=== PATIENT | female | born 1980 | race Caucasian/White ===

== ENCOUNTER 2019-08-26 13:52 | Emergency (ER) | payer OTHER, SELFPAY ==
--- NOTE | ~2019-08-26 | CT_ITS ---
EXAMINATION: CT lumbar spine wo [facility] EXAM DATE: 08/26/2019 15:45 INDICATION: No known recent injury provided at this time. Pain of the lower back. TECHNIQUE: Spiral CT of the lumbar spine was performed without contrast. Axial, coronal and sagittal images were reviewed. The dose-length product (DLP) for this examination was 492.47 mGy-cm. The e xposure was tailored according to patient size (auto mA exposure control), and iterative reconstructi on (ASIR) was used as additional dose reduction technique. There is no prior study for comparison. FINDINGS: There are no bony erosions identified. The vertebral bodies are aligned in the AP dimension . Vertebral body and disc heights are well-maintained. There are no acute fractures identified. There is no spondylolysis. Paraspinal soft tissue is unremarkable. Kidneys were imaged, no hydronephrosis or nephrolithiasis. Level by level evaluation: T12-L1: Disc does not extend beyond the endplate margin. Facet arthropathy: None. Neural foraminal stenosis: No stenosis. Central canal stenosis: No stenosis. L1-L2: Disc does not extend beyond the endplate margin. Facet arthropathy: None. Neural foraminal stenosis: No stenosis. Central canal stenosis: No stenosis. L2-L3: There is a mild diffuse disc bulge. Facet arthropathy: None. Neural foraminal stenosis: No stenosis. Central canal stenosis: No stenosis. L3-L4: There is a mild diffuse disc bulge. Facet arthropathy: Mild. Neural foraminal stenosis: Mild bilateral. Central canal stenosis: Mild. L4-L5: There is a mild diffuse disc bulge. Facet arthropathy: Mild to moderate. Neural foraminal stenosis: Mild to moderate left, mild right. Central canal stenosis: Mild. L5-S1: There is a mild diffuse disc bulge, superimposed small left central extrusion Facet arthropathy: Mild to moderate. Neural foraminal stenosis: Mild to moderate left, mild right. Central canal stenosis: Mild. IMPRESSION: 1. Mild lumbar spondylosis. 2. No acute findings. Reviewed, dictated and finalized at location B.
[2019-08-26 13:54] VITALS: BP 128/66; PULSE 65; RESP 18; TEMP 36.7; O2SAT 100
[2019-08-26] MEDS: ACETAMINOPHEN 500 MG TABLET 1000 MG PO (14:51)
--- NOTE | 2019-08-26 15:12 | ED.BACK ---
HPI - Back Pain/Injury General Chief Complaint: Back Pain/Injury Stated Complaint: Back Pain Time Seen by Provider: 08/26/19 14:07 Source: patient Mode of arrival: wheelchair Limitations: no limitations History of Present Illness HPI Narrative: Patient presents to the ER for low back pain x 3 days. Reports known injury or trauma. Reports she was tiling the bathroom all weekend. Reports pain is worse with movement and relieved with rest. She has taken anti-inflammatories with little relief. Reports tingling in her lower extremities. Denies numbness, weakness, saddle anesthesia, or bowel/bladder incontinence. Related Data Allergies Allergy/AdvReac Type Severity Reaction Status Date / Time No Known Allergies Allergy Verified 08/26/19 14:45 Review of Systems Review of Systems: Narrative: CONSTITUTIONAL: Denies fever SKIN: Denies rash MUSCULOSKELETAL: Reports back pain, joint pain, and myalgia. NEUROLOGIC: Denies numbness, or weakness. All systems reviewed & are unremarkable except as noted in HPI and below PMFSH Past Medical History Medical History (Updated 08/26/19 @ 16:42 by Palmira Burger PA-C) History of depression Social History Social History (Updated 08/26/19 @ 15:18 by Palmira Burger PA-C) Substance use: never Gender identity (if verbalized by the patient): Female Exam Narrative: Exam Narrative: GENERAL: Well-appearing, well-nourished, and in no acute distress. HEAD: Normocephalic, atraumatic. EYES: EOMI. CHEST: Clear to auscultation. No respiratory distress. No wheezes rales or rhonchi HEART: Regular rate and rhythm. No murmur heard. Normal peripheral pulses. BACK: No midline spinal tenderness EXTREMITIES: Normal range of motion. No edema. Strength equal in bilateral lower extremities (5/5). Normal patellar reflexes SKIN: Warm, dry, no rash. NEURO: No focal deficits. Alert and oriented x3. PSYCH: Normal mood and affect Course Vital Signs Vital signs: Vital Signs Temperature 98.1 F 08/26/19 13:54 Pulse Rate 65 08/26/19 13:54 Respiratory Rate 18 08/26/19 13:54 Blood Pressure 128/66 08/26/19 13:54 Pulse Oximetry 100 08/26/19 13:54 Temperature 98.1 F 08/26/19 13:54 Pulse Rate 65 08/26/19 13:54 Respiratory Rate 18 08/26/19 13:54 Blood Pressure 128/66 08/26/19 13:54 Pulse Oximetry 100 08/26/19 13:54 MDM - Back Pain/Injury MDM Narrative Medical decision making narrative: Patient presents the emergency department for low back pain x3 days. She is afebrile and nontoxic-appearing. Patient is neurologically intact. CT scan of the lumbar spine is without acute findings. Patient was instructed to rest, use ice/heat and take bkea-acl-wsorufh pain medication as needed. She can also take muscle relaxer as needed for pain. Patient is stable and felt appropriate for further outpatient evaluation. She is to follow-up with her primary care doctor. She was given warnings to return to the ER Lab Data Labs: UCG Bedside Result Negative Reference Range: Negative Imaging Data Radiologist's impression: ITS Impressions Lumbar Spine CT 08/26/19 15:46 IMPRESSION: 1. Mild lumbar spondylosis. 2. No acute findings. Critical Care Time Critical Care Time Critical Care Time: No Discharge Plan Discharge Clinical Impression: Strain of lumbar region Qualifiers: Encounter type: initial encounter Qualified Code(s): S39.012A - Strain of muscle, fascia and tendon of lower back, initial encounter Patient Disposition: Home, Self-Care Condition: Stable Instructions: Acute Low Back Pain (ED) Additional Instructions: Return to the ER if you experience weakness, numbness, bowel/bladder incontinence, or any other symptoms that are concerning to you Rest, use ice/heat, take anti-inflammatories (Aleve, Ibuprofen, Naproxen, etc) or Tylenol as needed for pain as well as muscle relaxer (diazepam) as needed for pain. Muscle
[2019-08-26 16:55] VITALS: BP 120/80; PULSE 80; RESP 20; TEMP 36.7; O2SAT 99
== END 2019-08-26 16:56 | disposition home or self-care (01) ==
PROVIDERS: Emergency Provider Emergency Medicine; PCP Internal Medicine
DX: S39.012A Strain of muscle, fascia and tendon of lower back, initial encounter (principal); M47.816 Spondylosis without myelopathy or radiculopathy, lumbar region; F32.9 Major depressive disorder, single episode, unspecified; X50.0XXA Overexertion from strenuous movement or load, initial encounter
CPT/HCPCS: 72131; 81025; 96372; 99284; A9270; J3360

== ENCOUNTER 2020-09-25 10:53 | Emergency (ER) | payer OTHER, SELFPAY ==
[2020-09-25 11:14] VITALS: BP 126/78; PULSE 68; RESP 20; TEMP 36.4; O2SAT 100
--- NOTE | 2020-09-25 12:09 | ED.GENADULT ---
HPI - General Adult General Chief complaint: Back Pain/Injury Stated complaint: LOW BACK PAIN Time Seen by Provider: 09/25/20 11:18 Source: patient and RN notes reviewed Mode of arrival: ambulatory Limitations: no limitations and altered mental status History of Present Illness HPI narrative: Patient is a 40-year-old female who presents with low back pain after doing some lifting at home specifically a car. She developed aching pain across the lower back worse with activity and movement has taken ibuprofen with minimal improvement has history of low back pain in the past patient presents per private vehicle appears uncomfortable but not distressed. Related Data Home Medications Medication Instructions Recorded Confirmed escitalopram oxalate 10 mg tablet 10 mg PO DAILY 08/25/19 01/14/20 Allergies Allergy/AdvReac Type Severity Reaction Status Date / Time acetaminophen Allergy Intermediate Rash Verified 08/27/19 08:25 [From Lorcet (hydrocodone)] bacitracin Allergy Intermediate Rash Verified 08/25/19 09:21 hydrocodone Allergy Intermediate Rash Verified 08/27/19 08:25 [From Lorcet (hydrocodone)] Penicillins Allergy Intermediate Rash Verified 08/25/19 09:21 povidone-iodine Allergy Intermediate Rash Verified 08/25/19 09:21 [From Betadine] soap [From Betadine] Allergy Intermediate Rash Verified 08/25/19 09:21 Review of Systems Review of Systems: All systems reviewed & are unremarkable except as noted in HPI and below PMFSH Past Medical History Medical History (Updated 09/25/20 @ 12:15 by Doc Cardoza PA-C) Anxiety Bone cancer Depression Family History Family History (Updated 01/14/20 @ 09:20 by Sai Fitzgerald MD) Father Hypothyroidism Social History Social History Smoking status: Never smoker Gender identity (if verbalized by the patient): Female Exam Narrative: GENERAL: Well-appearing, well-nourished, and in no acute distress. HEAD: Normocephalic, atraumatic. EYES: PERRLA and EOMI. ENT: Nares clear, no rhinorrhea or epistaxis. Mucous membranes moist. CHEST: Clear to auscultation. No respiratory distress. No wheezes rales or rhonchi HEART: Regular rate and rhythm. No murmur heard. Normal peripheral pulses. ABDOMEN: Soft, nontender, nondistended EXTREMITIES: Normal range of motion. No edema. Tenderness across the lower lumbar region no rash or deformities SKIN: Warm, dry, no rash. NEURO: No focal deficits. Alert and oriented x3. Cranial nerves II through XII grossly intact PSYCH: Normal mood and affect. Course Course Emergency Course: Patient in the room no distress aware of case findings treatment plan and diagnosis agreeing to follow-up as instructed or to return if symptoms worsen or concerns Vital Signs Vital signs: Vital Signs Temperature 97.5 F L 09/25/20 11:14 Pulse Rate 68 09/25/20 11:14 Respiratory Rate 09/25/20 11:14 Blood Pressure 126/78 09/25/20 11:14 Pulse Oximetry 100 09/25/20 11:14 Temperature 97.5 F L 09/25/20 11:14 Pulse Rate 68 09/25/20 11:14 Respiratory Rate 09/25/20 11:14 Blood Pressure 126/78 09/25/20 11:14 Pulse Oximetry 100 09/25/20 11:14 Medical Decision Making MDM Narrative Medical decision making narrative: Patients pain is positional in nature and localized to back without signs of cord compression or cauda equina based on neurological exam, skeletal exam and history. No fever or other significant factors to suggest osteomyelitis or spinal epidural abscess. No symptoms or signs to suggest pain is referred from abdominal or / cardiopulmonary sources. No pulsatile masses noted on exam. Patient ambulates with steady gait and is stable for outpatient management given case findings. Vital Signs Vital Signs: Vital Signs Temperature 97.5 F L 09/25/20 11:14 Pulse Rate 68 09/25/20 11:14 Respiratory Rate 09/25/20 11:14 Blood Pres
[2020-09-25] MEDS: diazePAM (*CRX) 5 MG TABLET PO (13:10)
[2020-09-25 13:12] VITALS: BP 128/82; PULSE 80; RESP 20; O2SAT 99
== END 2020-09-25 13:14 | disposition home or self-care (01) ==
PROVIDERS: Emergency Provider Emergency Medicine; PCP Physician Assistant
DX: S39.92XA Unspecified injury of lower back, initial encounter (principal); F41.9 Anxiety disorder, unspecified; F32.9 Major depressive disorder, single episode, unspecified; X50.0XXA Overexertion from strenuous movement or load, initial encounter
CPT/HCPCS: 99283; A9270

== ENCOUNTER → 2020-11-30 10:47 | Outpatient (REF) | payer OTHER, SELFPAY | LOC: ANHLAB 10:47 | PROVIDERS: PCP Physician Assistant; Visit Provider Nurse Practitioner | DX: D17.0 Benign lipomatous neoplasm of skin and subcutaneous tissue of head, face and neck (principal) | CPT/HCPCS: 88304 ==

== ENCOUNTER 2022-02-24 10:31 | Outpatient (CLI) | payer OTHER, SELFPAY | END 2022-02-24 10:32 | disposition home or self-care (01) | PROVIDERS: PCP Physician Assistant; Visit Provider Obstetrics & Gynecology | DX: Z01.818 Encounter for other preprocedural examination (principal); D25.9 Leiomyoma of uterus, unspecified | CPT/HCPCS: 36415; 86850; 86900; 86901 ==

== ENCOUNTER 2022-03-09 00:45 | Day surgery (SDC) | payer OTHER, SELFPAY ==
[2022-02-23 12:14] VITALS: BMI 30.4
--- NOTE | 2022-02-23 12:21 | PC.NURSE ---
Report to the Outpatient Waiting Room, entrance under the green pavilion located off [facility], at time 6:00 on date 03/09/22. Planned Procedure Time: 7:30. Time changes happen often and if your time is changed the preop area will call you the afternoon before. - You and your visitor will be asked to self-screen and do not enter if you have any COVID symptoms. - Only one visitor is requested with a max of two and NO children visitors are allowed at this time. - The patient visitor may be requested to leave or wait in car when not with patient due to distancing restrictions. - A mask is REQUIRED within the hospital. Patients may have clear liquids (water, carbonated beverages, clear teas, apple juice) until 3 hours prior to surgery (4:30) with a maximum of 20 ounces. - No food from midnight until time of surgery Take the following medications with a SIP of water the morning of surgery: N/A Medications to discontinue per physician: N/A Date to take last dose: N/A Please no make-up, nail luxembourger, hairspray, perfume, deodorant, or body powder the day of surgery. No jewelry (including any body piercings) or valuables the day of surgery, leave them at home. Please take a shower or bath the night before, or the morning of, surgery with an antibacterial soap. Wear comfortable, loose fitting clothing. - Jewelry must be removed prior to entering the operating room. Rings and piercings that are not removed may be cut off. - The hospital will not accept responsibility for valuables. - Please leave all valuables, including medications, at home the day of surgery. If you are going home after surgery, a licensed drop hammer pile driver operator must drive you home. - NO public transportation without another adult if you receive anesthesia. - We recommend that an adult stay with you for 24 hours following discharge. - We also recommend that you do not drive, make important decision, drink alcoholic beverages, or take any drugs that were not prescribed by your health care provider for at least 24 hours after your discharge time. Follow any additional instructions given to you from your surgeon. If you or anyone in your household have experienced Covid symptoms in the past week, please notify your surgeon or the nurse liaison at the phone number below for possible testing. Telephone instructions given to PT - ARANZA MIRANDA and asked if any additional questions and then verbalized understanding. Patient advised to call surgeon office or pre surgery nurse liaison [phone] if any additional questions.
--- NOTE | 2022-03-06 15:24 | PM.IMHP ---
H&P: HPI History of Present Illness Date/Time: 03/06/22 15:24 41-year-old 3 para 1021 female presents with complaints of menstrual cycles lasting 5-7 days with 3-5 days heavy with clotting and cramping. Had been on control pills in the past. Taking this that she felt poorly, and desires definitive therapy for the symptoms. Ultrasound also has been ordered which revealed enlarged uterus with multiple fibroids. She denies any significant urinary and or bowel symptoms. Does relate some cramping intermittently throughout the month but most of her concerns and issues occur around her menstrual cycles. 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 Depression Heart palpitations Kidney cyst, acquired benign Uterine fibroid Surgical History Surgical History History of bone graft bone/skin graft, bone resection for jaw bone cancer Family History Family History Father Hypothyroidism Grandparent Diabetes mellitus maternal grandmother Malignant tumor of ovary maternal grandmother Mother Diabetes mellitus Social History Social History Smoking status: Never smoker Alcohol intake: current Drinks per week: 2 Substance use: never Substance use type: does not use Additional living arrangements comments: DAUGHTER 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 Gender identity (if verbalized by the patient): Female Sexual Orientation (if Verbalized by the Patient): Straight or Heterosexual Spiritual care concerns: No Meds Home Medications and Allergies Home Medications Medication Instructions Recorded Confirmed Type No Home Medications 02/23/22 02/23/22 History Allergies Allergy/AdvReac Type Severity Reaction Status Date / Time acetaminophen Allergy Intermediate Rash Verified 02/23/22 12:13 [From Lorcet (hydrocodone)] bacitracin Allergy Intermediate Rash Verified 02/23/22 12:13 hydrocodone Allergy Intermediate Rash Verified 02/23/22 12:13 [From Lorcet (hydrocodone)] Penicillins Allergy Intermediate Rash Verified 02/23/22 12:13 povidone-iodine Allergy Intermediate Rash Verified 02/23/22 12:13 [From Betadine] soap [From Betadine] Allergy Intermediate Rash Verified 02/23/22 12:13 oxycodone [From OxyContin] Allergy Rash Verified 02/23/22 12:13 Exam Const: General: cooperative, healthy appearing and comfortable Resp: Effort & Inspection: normal respiratory effort Auscultation: clear to auscultation bilaterally Cardio: Rate: regular rate Rhythm: regular rhythm GI: Inspection: normal to inspection Auscultation: normal bowel sounds : External Female Exam: normal external appearance Speculum Exam - Vagina: normal appearance of the vagina Speculum Exam - Cervix: normal appearance of the cervix Bimanual exam- vagina & uterus: enlarged ( 12-14 week size/tender) Bimanual Exam- Adnexa, other: normal adnexae Assessment and Plan Assessment and plan (1) Menometrorrhagia: Code(s): N92.1 - Excessive and frequent menstruation with irregular cycle Status: Acute (2) Dysmenorrhea: Code(s): N94.6 - Dysmenorrhea, unspecified Status: Acute (3) Fibroid uterus: Code(s): D25.9 - Leiomyoma of uterus, unspecified Status: Acute Plan 1. Proceed with robotic assisted laparoscopic hysterectomy with bilateral salpingectomy, with ovarian preservation.
[2022-03-09] VITALS (14 sets, daily range): BP systolic 103–121; BP diastolic 63–87; PULSE 54–88; RESP 10–17; TEMP 36.3–36.8; O2SAT 96–100
[2022-03-09] MEDS: ACETAMINOPHEN 500 MG TABLET 1000 MG PO (06:36)
--- NOTE | 2022-03-09 06:46 | WPDANESEPPF ---
Anes - Initial Pre Proc Eval Procedure: Operation Date: 03/09/22 07:30 Proposed Procedures p Robotic Assisted Total Laparoscopic Hysterectomy, Bilateral Salpingectomy - Jay Lacey MD Date/Time: 03/09/22 06:46 Surgeon: Jay Lacey MD Pre Op Diagnosis: uterine fibroid Patient Data Age: 41 Gender: F Height: 1.73 m Weight: 90.72 kg Allergies Allergy/AdvReac Type Severity Reaction Status Date / Time bacitracin Allergy Intermediate Rash Verified 03/09/22 06:24 hydrocodone Allergy Intermediate Rash Verified 03/09/22 06:24 [From Lorcet (hydrocodone)] oxycodone [From OxyContin] Allergy Intermediate Rash Verified 03/09/22 06:24 Penicillins Allergy Intermediate Rash Verified 03/09/22 06:24 povidone-iodine Allergy Intermediate Rash Verified 03/09/22 06:24 [From Betadine] Home Medications Medication Instructions Recorded Confirmed Type No Home Medications 02/23/22 03/09/22 History Patient hx anesthesia problems: none Family hx anesthesia problems: none Results Review: All pre-operative results and documents have been reviewed as part of the pre-operative evaluation. 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 Depression Heart palpitations Kidney cyst, acquired benign Uterine fibroid Surgical History Surgical History History of bone graft bone/skin graft, bone resection for jaw bone cancer Family History Family History Father Hypothyroidism Grandparent Diabetes mellitus maternal grandmother Malignant tumor of ovary maternal grandmother Mother Diabetes mellitus Social History Social History Smoking status: Never smoker Alcohol intake: current Drinks per week: 2 Substance use: never Substance use type: does not use Living arrangements: with family Additional living arrangements comments: DAUGHTER 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 Gender identity (if verbalized by the patient): Female Sexual Orientation (if Verbalized by the Patient): Straight or Heterosexual Spiritual care concerns: No Anes - Eval Final PreProcedure Day of Procedure 03/09/22 06:46 Patient weight: obese Heart: regular rate and rhythm Lungs: clear to auscultation Airway: Mallampati scale class II and other (bone graft and plate right mandible) Last oral intake: >/= 8 hours ASA classification: II Emergent: no Anesthetic plan: proceed Anesthesia type and monitoring: general ETT and standard monitoring Results Review: All pre-operative results and documents have been reviewed as part of the pre-operative evaluation. Informed Consent: The patient's anesthetic plan and its attendant risks and benefits were discussed with the patient/family/POA. Questions were solicited and answers provided to the satisfaction of the patient/family/POA.
[2022-03-09] MEDS: LACTATED RINGERS 1,000 ML 30 ML IV CONT ×2 (06:55→09:11)
[2022-03-09] MEDS: KETOROLAC 15 MG/ML VIAL (*BKC) IV PUSH (06:56)
--- NOTE | 2022-03-09 07:03 | WPDHPUPDATE1 ---
History and Physical Update Update Date/Time: 03/09/22 07:03 History and Physical has been reviewed, including an updated exam of the patient. There are NO changes in the patient's condition. Risks, benefits, and alternatives have been discussed and questions answered. Patient agrees to proceed with procedure.
[2022-03-09] MEDS: ceFAZolin 2 GM/D5W 50 ML 2 GM/50 ML BAG IVPB (07:26)
--- NOTE | 2022-03-09 08:51 | W.PM.PROC2 ---
Procedure Note - Detailed Date of Procedure 03/09/22 Pre-op Diagnosis 1. Menometrorrhagia 2. Dysmenorrhea 3. Fibroid uterus Post-op Diagnosis Same Procedure Performed Robotic assisted laparoscopic total hysterectomy with bilateral salpingectomy (no oophorectomy) Surgeon Jay Lacey MD Anesthesia General Findings Enlarged fibroid uterus Description of Procedure Patient was prepped and draped in usual manner for this procedure. Cervical OS was placed for uterine mobility throughout the case. Abdominal trocar sites were marked and placed under direct visualization. These were then attached to the de Jayjay system the surgeon moved to the console. Findings were noted as above and the tubes were removed without difficulty by cauterizing and cutting the mesial salpinx and removing the separately. Round ligament cauterized and cut the bladder flap was developed without difficulty utero-ovarian ligaments were cauterized and cut and the uterine vessels were skeletonized. Once this was done they were cauterized and cut and rendered hemostatic. Anterior cul-de-sac was then entered and this was carried circumferentially to separate the cervix from the vagina and the uterus was delivered into the vagina. Cuff was then closed using AV lock suture from the right angle to the midline and left angle to the midline with good approximation hemostasis noted. Irrigation was undertaken and there was no oozing or bleeding at this point. Gerda was empirically placed, gas was allowed to escape incisions approximated using 4-0 Monocryl the patient sent to recovery room in stable condition. Estimated Blood Loss 100 Drains No Packing No Pathology Yes Complications No immediate complications Condition Stable Disposition PACU [facility] Billing Surgery - Charge Forward: Surgery Billing
[2022-03-09] MEDS: fentaNYL CITRATE INJ (*CRX) 100 MCG/2 ML VIAL 25 MCG IV PUSH ×8 (09:32→10:23)
[2022-03-09] MEDS: HYDROmorphone HCL INJ (*CRX) 1 MG/ML SYR 0.5 MG IV PUSH ×2 (10:32→10:38)
--- NOTE | 2022-03-09 11:24 | PC.NURSE ---
This patient, Raquel Sarkar, was received from PACU on 03/09/22 at 1124. Patient oriented to unit policies and routines.
[2022-03-09] MEDS: DEXTROSE 5%/0.45% SOD CHL 1,000 ML 125 ML IV CONT (11:42)
[2022-03-09] MEDS: ONDANSETRON INJ 4 MG/2 ML VIAL IV PUSH (11:42)
--- NOTE | 2022-03-09 13:15 | PC.NURSE ---
Spoke with pt regarding her allergy to hydrocodone, she last had a very high dose a few years ago with her jaw cancer and that resulted in a rash. If the time comes where she needs a [place] for pain relief she would like to try the 5mg PO dose of the [place] and see how that goes.
[2022-03-09] MEDS: KETOROLAC 30 MG/ML VIAL (*BKC) IV PUSH ×2 (13:17→21:35)
[2022-03-09] MEDS: SIMETHICONE 80 MG TAB.CHEW PO ×2 (13:17→17:27)
--- NOTE | 2022-03-09 15:40 | PC.NURSE ---
Karina Veliz RN has looked over and approved patient's charting that Bigg Regalado, Student RN, has completed.
[2022-03-09] MEDS: HYDROcodone/acetaminophen (*CRX) 5-325 MG TABLET 1 TAB PO (17:27)
[2022-03-10] VITALS: BP 108/69; PULSE 81; RESP 18; TEMP 36.7; O2SAT 97
[2022-03-10] MEDS: SIMETHICONE 80 MG TAB.CHEW PO ×2 (00:04→07:56)
[2022-03-10] MEDS: KETOROLAC 30 MG/ML VIAL (*BKC) IV PUSH (05:33)
[2022-03-10 05:40] VITALS: BP 110/70; PULSE 73; RESP 20; TEMP 36.8; O2SAT 98
[2022-03-10 05:41] LABS: Basophils Absolute Auto 0.1 K/mm3 (0.0-0.1); Basophils Percent Auto 0.5 % (0.2-1.2); Eosinophils Absolute Auto 0.1 K/mm3 (0-0.3); Eosinophils Percent Auto 0.9 % (0-4.4); Hematocrit 35.1 % (37.0-47.0); Hemoglobin 12.1 g/dL (12.0-15.0); Immature Granulocyte Absolute 0.05 K/mm3 (0.00-0.031); Immature Granulocyte Percent A 0.4 % (0-0.5); Lymphocytes Absolute Auto 3.55 K/mm3 (0.9-3.2); Lymphocytes Percent Auto 30.6 % (18.3-44.2); Mean Corpuscular HGB Conc 34.5 g/dl (32-36); Mean Corpuscular Hemoglobin 30.9 pg (26-34); Mean Corpuscular Volume 89.5 fl (80-100); Mean Platelet Volume 10.2 fl (7.4-10.4); Monocytes Absolute Auto 1.1 K/mm3 (0.1-0.6); Monocytes Percent Auto 9.2 % (2.6-8.5); Neutrophils Absolute Auto 6.8 K/mm3 (1.3-6.7); Neutrophils Percent Auto 58.4 % (45.5-73.1); Platelet Count Result 279 k/mm3 (150-375); Red Blood Count 3.92 M/mm3 (4.2-5.4); Red Cell Distribution Width 12.4 % (11.5-14.5); White Blood Count 11.6 K/mm3 (4.5-10.0)
[2022-03-10 08:00] VITALS: BP 118/64; PULSE 70; RESP 16; TEMP 36.9; O2SAT 99
--- NOTE | 2022-03-10 08:32 | WPDANESPN ---
Anes - Prog Note Post-Op Date/Time: 03/10/22 08:32 Cardiovascular status: normal Respiratory status: normal Airway patency: baseline Mental status: baseline Post-Op hydration status: normal Vital Signs: Last Vital Signs Temp 36.8 C 03/10/22 05:40 Pulse 73 03/10/22 05:40 Resp 20 03/10/22 05:40 BP 110/70 03/10/22 05:40 Pulse Ox 98 03/10/22 05:40 O2 Del Method Room Air 03/10/22 05:40 O2 Flow Rate 6 03/09/22 09:55 Pain Score (VAS): 0 I/O: Intake & Output 03/09/22 03/10/22 03/10/22 23:59 07:59 15:59 Intake Total 500 400 Output Total 200 1250 Balance 300 -850 Laboratory Tests 03/10/22 05:30 03/10/22 05:30 WBC 11.6 H RBC 3.92 L Hgb 12.1 Hct 35.1 L MCV 89.5 MCH 30.9 MCHC 34.5 RDW 12.4 Plt Count 279 MPV 10.2 Immature Gran % (Auto) 0.4 Neut % (Auto) 58.4 Lymph % (Auto) 30.6 [place] % (Auto) 9.2 H Eos % (Auto) 0.9 Baso % (Auto) 0.5 Lymph # (Auto) 3.55 H [place] # (Auto) 1.1 H Eos # (Auto) 0.1 Baso # (Auto) 0.1 Abs Immat Gran (auto) 0.05 H Absolute Neuts (auto) 6.8 H Absolute Nucleated RBC 0.0 Nucleated RBC % 0.0 Post-procedural complaints: none Patient Feedback: Patient satisfied with anesthetic care.
[2022-03-10] MEDS: HYDROcodone/acetaminophen (*CRX) 5-325 MG TABLET 1 TAB PO (10:37)
== END 2022-03-10 12:15 | disposition home or self-care (01) ==
LOC: ANHSURGERY 06:15 → ANHOB2 14:04
PROVIDERS: PCP Physician Assistant; Visit Provider Obstetrics & Gynecology
PROC: (CPT 58552; principal; 2022-03-09 07:30)
DX: N92.1 Excessive and frequent menstruation with irregular cycle (principal); D25.9 Leiomyoma of uterus, unspecified; N94.6 Dysmenorrhea, unspecified; N83.8 Other noninflammatory disorders of ovary, fallopian tube and broad ligament; Z85.830 Personal history of malignant neoplasm of bone
CPT/HCPCS: 58552; S2900; 36415; 85025; 86850; 86900; 86901; 88307; 99199; A9270; J0690; J1100; J1170; J1885; J2250; J2405; J2704; J2710; J3010; J7030; J7120

== ENCOUNTER 2022-05-19 08:24 | Outpatient (CLI) | payer OTHER, SELFPAY ==
--- NOTE | 2022-05-22 15:00 | WPDHOMESLEEP ---
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 The patient rarely awakens from sleep short of breath. She rarely awakens at night with heartburn, belching or cough. She occasionally snores but it is never loud enough that others complain. She occasionally has trouble sleeping when she has a cold. She rarely wakes up gasping for air throughout the night. she rarely has breathing problems at night observed by herself or others. She rarely sweats excessively at night. He rarely has heart palpitations or irregular heartbeats during the night. She denies falling asleep during the day and denies falling asleep while driving. She denies sleep paralysis and cataplexy. She rarely has trouble at school or work due to sleepiness. She frequently experiences vivid dreamlike scenes upon awakening or falling asleep. She denies feeling afraid of going to sleep. She occasionally has nightmares. She frequently remembers her dreams. She frequently has thoughts racing through her mind. She occasionally feels sad or depressed and frequently has anxiety. She occasionally has muscular tension. She occasionally notices parts of her body jerk. She rarely kicks during the night. She rarely experiences crawling and aching feelings in her legs and rarely experiences leg pain during the night. She occasionally grinds her teeth during sleep but never awakens with morning jaw pain. She is occasionally bothered by pain during the day but rarely awakened by pain during the night. She frequently wakes up feeling stiff in the morning. She frequently wakes up with sore or achy muscles. She occasionally wakes up with pain in the neck, spine or other joints. The patient goes to bed at 10:00 p.m. on weekdays and 11:00 p.m. on the weekends. It takes her 30-60 minutes to fall asleep. She wakes up once throughout the night to urinate and is able to fall back asleep within 15-30 minutes. She wakes up at 5:45 a.m. on weekdays and at 7:00 a.m. on the weekends. She typically gets 7 hours of sleep per night. She will stay in bed for 5 minutes on weekdays after waking up and 30 minutes on the weekend. She currently lives with her 18-year-old child. She will consume caffeinated beverages within 2 hours of bedtime. She does not engage in physical exercise before bedtime. She will read watch television before falling asleep. She denies taking naps during the afternoon or the evening. She drinks 2-3 caffeinated beverages per day. She drinks 2 alcoholic beverages per week. She denies tobacco and recreational drug use. [facility] Past Medical History Medical History Anxiety Bone cancer (~2007) jaw Depression Heart palpitations Kidney cyst, acquired benign Uterine fibroid Surgical History Surgical History History of bone graft bone/skin graft, bone resection for jaw bone cancer History of robot-assisted laparoscopic hysterectomy (03/09/22) Robotic assisted laparoscopic total hysterectomy with bilateral salpingectomy Family History Family History Father Hypothyroidism Grandparent Diabetes mellitus maternal grandmother Malignant tumor of ovary maternal grandmother Mother Diabetes mellitus
[2022-05-22 15:06] VITALS: BMI 29.6
== END 2022-05-22 10:07 | disposition home or self-care (01) ==
LOC: ANHCSM 08:25
PROVIDERS: PCP Physician Assistant; Visit Provider Internal Medicine Cardiovascular Disease
DX: G47.9 Sleep disorder, unspecified (principal); G47.10 Hypersomnia, unspecified
CPT/HCPCS: 95800

== ENCOUNTER 2022-10-03 09:41 | Observation (INO) | payer OTHER, SELFPAY ==
--- NOTE | ~2022-10-03 | MR_ITS ---
EXAMINATION: MR pituitary wo/w con DATE: 10/04/2022 08:08 INDICATION: Enlarged pituitary. TECHNIQUE: Magnetic resonance imaging (MRI) of the brain and brainstem was performed without and with 17 mL MultiHance intravenous contrast. COMPARISON: Head CT 10/03/2022 FINDINGS: The pituitary demonstrates a height of 11 mm. There is an 11 x 10 x 7 mm mass of increased T1-weighted signal intensity in the pituitary without contrast enhancement, consistent with a Rathke cleft cyst. The infundibulum is at the midline. There is no acute ischemic infarct or intracranial he morrhage. There are 2 foci of increased T2-weighted signal intensity in the cerebral white matter, wh ich is normal for the patient's age. The ventricles are normal in size. The paranasal sinuses are elizabeth ar. The orbits are normal. The mastoid air cells are normal. 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 Reviewed, dictated and finalized at location A.
--- NOTE | ~2022-10-03 | CT_ITS ---
Non-contrast Head CT History: Headache Technique: Axial non-contrast imaging of the brain was performed. Dose reduction technique was used on this scan by utilizing automated exposure control and iterative reconstruction technique. The dose -length product (DLP) was 605.33 mGy-cm. Findings: There is no evidence of intracranial hemorrhage or acute infarct. Brain parenchyma appear s normal. The ventricles and subarachnoid spaces are normal in size. The calvarium appears normal. Suggestion of mildly prominent appearance of the pituitary gland. The visualized paranasal sinuses an d mastoid air cells are clear. Impression: Questionable mild prominence of the pituitary gland. Consider follow-up MR imaging to better assess f or any possibility of pituitary mass. Reviewed, dictated and finalized at location . Impression: Questionable mild prominence of the pituitary gland. Consider follow-up MR imag ing to better assess for any possibility of pituitary mass.
[2022-10-03 09:43] VITALS: BP 134/91; PULSE 75; RESP 15; TEMP 36.3; O2SAT 99
[2022-10-03] MEDS: KETOROLAC 30 MG/ML VIAL (*BKC) IV PUSH (11:29)
[2022-10-03] MEDS: PROCHLORPERAZINE EDISYLATE 10 MG/2 ML VIAL IV PUSH (11:29)
[2022-10-03 11:30] LABS: Appearance Urine Clear (Clear); Basophils Absolute Auto 0.1 K/mm3 (0.0-0.1); Basophils Percent Auto 1.1 % (0.2-1.2); Bilirubin Urine Negative (Negative); Blood Urine Negative (Negative); Color Urine Yellow (Yellow); Eosinophils Absolute Auto 0.2 K/mm3 (0-0.3); Eosinophils Percent Auto 2.3 % (0-4.4); Glucose Urine UA Negative (Negative); Hematocrit 43.2 % (37.0-47.0); Hemoglobin 14.7 g/dL (12.0-15.0); Immature Granulocyte Absolute 0.02 K/mm3 (0.00-0.031); Immature Granulocyte Percent A 0.2 % (0-0.5); Ketones Urine Negative (Negative); Leukocyte Esterase Ur Negative LEU/UL (Negative); Lymphocytes Absolute Auto 2.64 K/mm3 (0.9-3.2); Lymphocytes Percent Auto 28.1 % (18.3-44.2); Mean Corpuscular Hemoglobin 31.5 pg (26-34); Mean Corpuscular Volume 92.7 fl (80-100); Monocytes Absolute Auto 0.8 K/mm3 (0.1-0.6); Monocytes Percent Auto 8.1 % (2.6-8.5); Neutrophils Absolute Auto 5.7 K/mm3 (1.3-6.7); Neutrophils Percent Auto 60.2 % (45.5-73.1); Nitrate Urine Negative (Negative); Platelet Count Result 323 k/mm3 (150-375); Protein Urine Negative (Negative); Red Blood Count 4.66 M/mm3 (4.2-5.4); Red Cell Distribution Width 12.4 % (11.5-14.5); Specific Grav Ur 1.004 (1.001-1.035); Urobilinogen Urine 0.2 mg/dL (<2.0); White Blood Count 9.4 K/mm3 (4.5-10.0); pH Urine 6.5 (5.0-9.0)
[2022-10-03] MEDS: SODIUM CHLORIDE 0.9% IV 1,000 ML 999 ML IV CONT (11:30)
[2022-10-03 11:40] LABS: Alanine Aminotransferase 18 U/L (6-35); Albumin Level 4.3 g/dL (3.5-5.1); Alkaline Phosphatase 57 U/L (38-126); Anion Gap 4 mmol/L (8-16); Aspartate Amino Transferase 20 U/L (14-36); Bilirubin,Total 0.4 mg/dL (0.2-1.3); Blood Urea Nitrogen 10 mg/dL (7-17); Calcium 9.4 mg/dL (8.4-10.2); Carbon Dioxide 28 mmol/L (22-30); Chloride 104 mmol/L (98-107); Estimated CRCL calculation 103 ml/min; Estimated Glomerular Filt Rate > 60; Glucose 88 mg/dL (65-110); Potassium 3.9 mmol/L (3.4-5.0); Sodium 136 mmol/L (137-145)
[2022-10-03 11:55] LABS: Add Urine Microscopic? NO
[2022-10-03 13:34] VITALS: BP 119/80; PULSE 63; RESP 20; O2SAT 100
--- NOTE | 2022-10-03 14:00 | PM.IMHP ---
H&P: HPI History of Present Illness Date/Time: 10/03/22 14:45 Chief Complaint: Headache and numbness to the left side of face and neck. Narrative: This is a pleasant 42-year-old female with hypothyroidism and history of chondrosarcoma of the jaw in 2007 who presented to the emergency department via private vehicle for evaluation of a headache and numbness to the left side of the face and neck. The patient provides the following history. She reports a vice-like headache the last several days for which she was seen and treated at urgent care yesterday. She received IM Benadryl and Toradol with improvement in her symptoms and she felt pretty good when she went to bed last night and when she got up this morning. About an hour after she got to work her headache returned but this time it was associated with numbness and tingling of the left side of the face and neck. She also reports feeling a bit woozy at the time of symptom onset. She does not typically have headaches and denies history of migraines. She denies fever, chills, sweats, and cold and flu symptoms. No palpitations or sensations of racing heart. She denies visual changes, facial droop, and difficulty speaking and swallowing. No focal weakness. She denies weight changes. She had a hysterectomy earlier this year for heavy bleeding. No heat or cold intolerance. In the ED: She was afebrile with stable blood pressures. CMP and CBC were really unremarkable. Brain CT showed questionable mild prominence of the pituitary gland. ED provider spoke with the neurologist on-call who requested the patient be admitted overnight for observation and brain MRI. Intervention thus far includes a L of normal saline, 10 mg prochlorperazine, 30 mg ketorolac, and 10 mg dexamethasone with improvement in her headache. Review of Systems Review of Systems: Twelve systems were reviewed and are negative except for as per HPI. [facility] Past Medical History Medical History (Updated 10/03/22 @ 14:58 by Charissa Mosquera PA-C) Anxiety Benign cyst of kidney Cancer of jaw bone (2007) Depression Heart palpitations Hypothyroidism Uterine fibroid Surgical History Surgical History (Updated 10/03/22 @ 20:45 by Charissa Mosquera PA-C) History of mandibular surgery Resection of chondrosarcoma. History of robot-assisted laparoscopic hysterectomy (03/09/22) Robotic assisted laparoscopic total hysterectomy with bilateral salpingectomy Family History Family History Father Hypothyroidism Grandparent Diabetes mellitus maternal grandmother Malignant tumor of ovary maternal grandmother Mother Diabetes mellitus Social History Social History (Updated 10/03/22 @ 20:45 by Charissa Mosquera PA-C) Social History: Surrogate medical decision maker: Adria Tinsley, daughter. Code status: Full code. Smoking status: Never smoker Alcohol intake: current Drinks per week: 2 Substance use: never Substance use type: does not use Lack of Transportation: No Lack of Food: Never True Current Housing: I Have Housing Concerned About Future Housing: No Difficulty Paying Gas/Electric Bills: No Difficulty Paying for Meds: No Currently Unemployed: No Education: Don't Know Difficulty w/ Childcare or Family Care: No Living arrangements: with family Additional living arrangements comments: Lives with daughter in [place]. 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 Spiritual care concerns: No Meds Home Medications and Allergies Home Medications Medication Instructions Recorded Confirmed Type ibuprofen 600 mg tablet 600 mg PO Q6H PRN Cramping #30 tabs 03/09/22 10/03/22 Rx cetirizine 10 mg capsule (Zyrtec) 10 mg PO DAILY 04/21/22 10/03/22 History levothyroxine 50 mcg tablet 50 mcg PO DAILY 10/03/22 10/03/22 History Allergies Allergy/A
--- NOTE | 2022-10-03 14:08 | ED.GENADULT ---
HPI - General Adult General Chief complaint: Headache Stated complaint: migraine Time Seen by Provider: 10/03/22 10:46 History of Present Illness HPI narrative: Raquel Sarkar is a 42 y/o female who presents with reports of a headache that started a couple days ago. Yesterday she went to an and was given medications and her pain improved. She got up today and went to work and her headache started to return so she came here. She reports she has a little bit of numbness to the left side of her face as well. She reports that she had a similar headache about 1 week ago while she was with some friends and she took ibuprofen and rested and the headache improved. Denies any vision changes/ blurry vision /fever/ chills. Related Data Home Medications Medication Instructions Recorded Confirmed cetirizine 10 mg capsule (Zyrtec) 10 mg PO DAILY PRN 04/21/22 04/21/22 Allergies Allergy/AdvReac Type Severity Reaction Status Date / Time bacitracin Allergy Intermediate Rash Verified 10/03/22 10:30 hydrocodone Allergy Intermediate Rash Verified 10/03/22 10:30 [From Lorcet (hydrocodone)] oxycodone [From OxyContin] Allergy Intermediate Rash Verified 10/03/22 10:30 Penicillins Allergy Intermediate Rash Verified 10/03/22 10:30 povidone-iodine Allergy Intermediate Rash Verified 10/03/22 10:30 [From Betadine] Review of Systems Review of Systems: CONSTITUTIONAL: Denies fever, chills, or sweats. EYES: Denies visual changes, redness, or discharge. ENT: Denies rhinorrhea, congestion, sore throat, or otalgia. CARDIOVASCULAR: Denies chest pain, palpitations, or edema. RESPIRATORY: Denies cough or dyspnea. GASTROINTESTINAL: Denies abdominal pain, nausea, vomiting, or diarrhea. GENITOURINARY: Denies dysuria or hematuria. SKIN: Denies rash or itching. MUSCULOSKELETAL: Denies back pain, joint pain, or myalgia. NEUROLOGIC: Reports headache 4/10 with numbness to the left side of face, denies dizziness, or weakness. PSYCHIATRIC: Denies anxiety or depression. [facility] Past Medical History Medical History Anxiety Benign cyst of kidney Bone cancer (~2007) jaw Depression Heart palpitations Uterine fibroid Surgical History Surgical History History of bone graft Bone/skin graft following resection of jaw bone for cancer. History of robot-assisted laparoscopic hysterectomy (03/09/22) Robotic assisted laparoscopic total hysterectomy with bilateral salpingectomy Family History Family History Father Hypothyroidism Grandparent Diabetes mellitus maternal grandmother Malignant tumor of ovary maternal grandmother Mother Diabetes mellitus Social History Social History Social History: Surrogate medical decision maker: Code status: Full code. Smoking status: Never smoker Alcohol intake: current Drinks per week: 2 Substance use: never Substance use type: does not use Living arrangements: with family Additional living arrangements comments: Lives with daughter in [place]. 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 Spiritual care concerns: No Exam Narrative: GENERAL: Well-appearing, well-nourished, and in no acute distress. HEAD: Normocephalic, atraumatic. EYES: PERRLA and EOMI no nystagmus noted ENT: Nares clear, no rhinorrhea or epistaxis. Mucous membranes moist. Oropharynx without tonsillar hypertrophy exudate or other lesions. Bilateral TMs pearly villarreal nonbulging NECK: Supple. No adenopathy or masses. No carotid bruits or JVD CHEST: Clear to auscultation. No respiratory distress. No wheezes rales or rhonchi HEART: Regular rate and rhythm. No murmur heard. Normal peripheral pulses. ABDOMEN: Soft, nontender,
--- NOTE | 2022-10-03 15:00 | ADMGEN ---
This patient, Raquel Sarkar, was admitted to [facility] Surg Room 315-02. Patient/family oriented to hospital policies and general routines including ID bracelet, bed and alarms, visiting hours, pain management, procedures, bathroom and other care routines, personal items, smoking policy, room service/diet, and visiting hours. Information on how to activate the Rapid Response Team has been discussed. Patient/Family are encouraged to report perceived risks to care and to ask questions if they do not understand what they are told or what they should do.
[2022-10-03 15:33] LABS: Free T4 Free Thyroxine 1.25 ng/mL (0.78-2.19)
[2022-10-03 15:49] LABS: Thyroid Stimulating Hormone 0.881 uIU/mL (0.465-4.680)
[2022-10-03 15:55] LABS: Cortisol Random 3.11 ug/dL
[2022-10-03 18:04] VITALS: BP 120/73; PULSE 78; RESP 18; TEMP 36.3; O2SAT 99
[2022-10-03] MEDS: KETOROLAC 15 MG/ML VIAL (*BKC) IV PUSH (20:25)
[2022-10-03 22:00] VITALS: BP 105/64; PULSE 67; RESP 18; TEMP 36.5; O2SAT 98
[2022-10-04] MEDS: LEVOTHYROXINE SODIUM 50 MCG TABLET PO (05:41)
[2022-10-04 06:00] VITALS: BP 102/66; PULSE 67; RESP 16; TEMP 36.7; O2SAT 99
--- NOTE | 2022-10-04 07:55 | PM.IMPN ---
Progress Note: A&P Assessment and Plan (1) Headache: Code(s): R51.9 - Headache, unspecified Status: Acute Assessment and Plan: She has a migraine like headache for the past several days which is unusual for her. Her symptoms have improved significantly with dexamethasone, ketorolac, and prochlorperazine given in ED. (2) Left facial numbness: Code(s): R20.0 - Anesthesia of skin Status: Acute Assessment and Plan: Etiology not entirely clear but may be related to migraine headache. Symptoms have since resolved. Continue neurologic checks q.4 hours. Neurology has been consulted for their opinion. Brain MRI ordered. (3) Abnormal brain CT: Code(s): R90.89 - Other abnormal findings on diagnostic imaging of central nervous system Status: Acute Assessment and Plan: Questionable mild prominence of the pituitary gland noted on brain CT. Brain MRI ordered for further evaluation. (4) Hypothyroidism: Code(s): E03.9 - Hypothyroidism, unspecified Status: Acute Assessment and Plan: Continue levothyroxine and check TSH. Plan Neurology gave recommendations for migraine headache treatment and avoidance of triptans. Reviewed with patient and they are understanding of plan of care. Will recommend follow up with PCP in 1-2 weeks as needed. Subjective Date/time seen: 10/04/22 07:55 Interval history: Narrative: This is a pleasant 42-year-old female with hypothyroidism and history of chondrosarcoma of the jaw in 2007 who presented to the emergency department via private vehicle for evaluation of a headache and numbness to the left side of the face and neck. The patient provides the following history. She reports a vice-like headache the last several days for which she was seen and treated at urgent care yesterday. She received IM Benadryl and Toradol with improvement in her symptoms and she felt pretty good when she went to bed last night and when she got up this morning. About an hour after she got to work her headache returned but this time it was associated with numbness and tingling of the left side of the face and neck. She also reports feeling a bit woozy at the time of symptom onset. She does not typically have headaches and denies history of migraines. She denies fever, chills, sweats, and cold and flu symptoms. No palpitations or sensations of racing heart. She denies visual changes, facial droop, and difficulty speaking and swallowing. No focal weakness. She denies weight changes. She had a hysterectomy earlier this year for heavy bleeding. No heat or cold intolerance. Interval History: 10/04: Patient is seen sitting on the edge of her bed with family at bedside. She is wanting to discharge home. Neurology has seen the patient and reviewed MRI findings. Per neurology patient can discharge home. Explained recommendations for migraine headache treatment for future migraines. Patient verbalized understanding. Patient denies any complaints at this time. Review of Systems Review of Systems: Twelve systems were reviewed and are negative except for as per HPI. All systems reviewed & are unremarkable except as noted in HPI and below Exam Narrative: General: Well-developed, nontoxic-appearing female sitting up in bed. Weight: 89.6 kg. BMI: 30.0. HEENT: Normocephalic, atraumatic. PERRL, EOMI. Sclera anicteric. Oral mucosa moist. Oropharynx clear. Neck: Supple. Surgical scar on the underside of the chin and right side of the neck Respiratory: Lungs are clear to auscultation bilaterally. Cardiovascular: Regular rate and rhythm with S1-S2. Gastrointestinal: Abdomen is soft, nontender, and nondistended with positive bowel sounds. Skin: Warm and dry. No rash or lesions on limited exam. Extremities: No cyanosis, clubbing, or edema. Radial and pedal pulses intact. Neurological: Alert and oriented. Cranial nerves 2-12 are grossly intact. Speech is clear. No faci
[2022-10-04] MEDS: LORATADINE 10 MG TABLET PO (08:30)
[2022-10-04] MEDS: ACETAMINOPHEN 325 MG TABLET 650 MG PO (08:30)
[2022-10-04 08:50] LABS: Basophils Absolute Auto 0.1 K/mm3 (0.0-0.1); Basophils Percent Auto 0.4 % (0.2-1.2); Eosinophils Absolute Auto 0.1 K/mm3 (0-0.3); Eosinophils Percent Auto 0.5 % (0-4.4); Hematocrit 43.3 % (37.0-47.0); Immature Granulocyte Absolute 0.06 K/mm3 (0.00-0.031); Immature Granulocyte Percent A 0.4 % (0-0.5); Lymphocytes Absolute Auto 3.04 K/mm3 (0.9-3.2); Lymphocytes Percent Auto 18.3 % (18.3-44.2); Mean Corpuscular HGB Conc 34.6 g/dl (32-36); Mean Corpuscular Hemoglobin 31.2 pg (26-34); Mean Platelet Volume 10.3 fl (7.4-10.4); Monocytes Absolute Auto 1.1 K/mm3 (0.1-0.6); Monocytes Percent Auto 6.4 % (2.6-8.5); Neutrophils Absolute Auto 12.3 K/mm3 (1.3-6.7); Platelet Count Result 346 k/mm3 (150-375); Red Blood Count 4.81 M/mm3 (4.2-5.4); White Blood Count 16.6 K/mm3 (4.5-10.0)
[2022-10-04 09:01] LABS: Alanine Aminotransferase 19 U/L (6-35); Albumin Level 4.5 g/dL (3.5-5.1); Alkaline Phosphatase 62 U/L (38-126); Anion Gap 8 mmol/L (8-16); Aspartate Amino Transferase 35 U/L (14-36); Bilirubin,Total 0.5 mg/dL (0.2-1.3); Blood Urea Nitrogen 9 mg/dL (7-17); Calcium 9.4 mg/dL (8.4-10.2); Carbon Dioxide 25 mmol/L (22-30); Chloride 106 mmol/L (98-107); Estimated CRCL calculation 119 ml/min; Estimated Glomerular Filt Rate > 60; Glucose 94 mg/dL (65-110); Sodium 139 mmol/L (137-145)
--- NOTE | 2022-10-04 09:30 | WPDNEURCNPN ---
Assessment and Plan Assessment and plan (1) Headache: Qualifiers: Headache chronicity pattern: unspecified pattern Headache type: unspecified Intractability: intractable Qualified Code(s): R51.9 - Headache, unspecified Code(s): R51.9 - Headache, unspecified Status: Acute (2) Left facial numbness: Code(s): R20.0 - Anesthesia of skin Status: Acute (3) Pituitary abnormality: Code(s): E23.7 - Disorder of pituitary gland, unspecified Status: Acute Plan Raquel Sarkar is a 42 year old female with a history of hypothyroidism, chondrosarcoma of the jaw presenting due to headache with numbness of the left side of the face. MRI brain is negative for acute stroke or demyelinating disease. 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 Patient should avoid hormonal therapy and triptans in the future. - Prevnetative medication is not needed yet, will see how the next few months go; if she has recurrent headaches, will re-consider at that point - Use Naproxen 500mg, Benadryl 25mg, and Zofran 4mg as needed for further migraines (at onset) Consult date: 10/04/22 Reason for consult: Headache HPI: Raquel Sarkar is a 42 year old female with a history of hypothyroidism, chondroscarcoma of the jaw presenting due to headache with numbness of the left side of the face. Patient reports that she has been having a headache for the past few days. She initially went to an urgent care where she received Benadryl and Toradol, which resulted in improvement in her symptoms. She woke up the next morning and went to work. About an hour after she got to work, she developed numbness and tingling involving the left side of the face associated with headache. She does not typically have headaches and has never been diagnosed with migraines. She denied any visual changes, facial droop, aphasia, focal weakness. When she presented to [facility] she had a CT head which showed prominence of pituitary gland. She received a migraine cocktail which resulted in improvement of her headache. Considering the new symptoms of facial numbness, she was admitted for MRI which was done this morning and is normal. Patient reported that the headache was pounding in quality, holocranial, associated with photophobia, phonophobia, and nausea, lasting all day. Review of Systems Constitutional: Constitutional: Denies chills, Denies fever(s) and Denies weight loss Eyes: Eyes: Denies diplopia and Denies loss of vision ENT: Denies dizziness, Denies hearing loss and Denies tinnitus Cardiovascular: Cardiovascular: Denies chest pain, Denies syncope and Denies dyspnea Respiratory: Respiratory: Denies cough, Denies dyspnea and Denies wheezing Gastrointestinal: Gastrointestinal: Denies abdominal pain, Denies change in bowel habits and Denies vomiting Genitourinary: Genitourinary: Denies urinary incontinence Musculoskeletal: Musculoskeletal: Denies arthralgias, Denies joint swelling and Reports stiffness Integumentary/Breasts: Skin/Breast: Denies new lesions and Denies rash Neurologic: Reports as per HPI, Denies dizziness, Denies syncope and Denies loss of vision Psychiatric: Psychiatric: Denies anxiety and Denies depression Endocrine: Endocrine: Denies cold intolerance and Denies heat intolerance Hematologic/Lymphatic: Hematologic/Lymphatic: Denies easy bleeding and Denies easy bruising Allergic/Immunologic: Allergic/Immunologic: Denies no additional allergic/immunologic complaints and Denies wheezing PMFSH Past Medical History Medical History Anxiety Benign cyst of kidney Cancer of jaw bone (2007) Depression Heart palpitations Hypothyroidism Uterine fibroid Surgical History Surgical History History of mandibular surgery Resection of chondros
--- NOTE | 2022-10-04 11:32 | PM.DS ---
DS: Admitting Diagnosis Discharge Date 10/04 Admitting Diagnosis migraine DS: Discharge Diagnosis Discharge Diagnosis (1) Headache: Code(s): R51.9 - Headache, unspecified Status: Acute Assessment and Plan: She has a migraine like headache for the past several days which is unusual for her. Her symptoms have improved significantly with dexamethasone, ketorolac, and prochlorperazine given in ED. (2) Left facial numbness: Code(s): R20.0 - Anesthesia of skin Status: Acute Assessment and Plan: Etiology not entirely clear but may be related to migraine headache. Symptoms have since resolved. Continue neurologic checks q.4 hours. Neurology has been consulted for their opinion. Brain MRI ordered. (3) Abnormal brain CT: Code(s): R90.89 - Other abnormal findings on diagnostic imaging of central nervous system Status: Acute Assessment and Plan: Questionable mild prominence of the pituitary gland noted on brain CT. Brain MRI ordered for further evaluation. (4) Hypothyroidism: Code(s): E03.9 - Hypothyroidism, unspecified Status: Acute Assessment and Plan: Continue levothyroxine and check TSH. Plan Neurology gave recommendations for migraine headache treatment and avoidance of triptans. Reviewed with patient and they are understanding of plan of care. Will recommend follow up with PCP in 1-2 weeks as needed. DS: Summary Hospital Course Hospital Course: This is a pleasant 42-year-old female with hypothyroidism and history of chondrosarcoma of the jaw in 2007 who presented to the emergency department via private vehicle for evaluation of a headache and numbness to the left side of the face and neck. The patient provides the following history. She reports a vice-like headache the last several days for which she was seen and treated at urgent care yesterday. She received IM Benadryl and Toradol with improvement in her symptoms and she felt pretty good when she went to bed last night and when she got up this morning. About an hour after she got to work her headache returned but this time it was associated with numbness and tingling of the left side of the face and neck. She also reports feeling a bit woozy at the time of symptom onset. She does not typically have headaches and denies history of migraines. She denies fever, chills, sweats, and cold and flu symptoms. No palpitations or sensations of racing heart. She denies visual changes, facial droop, and difficulty speaking and swallowing. No focal weakness. She denies weight changes. She had a hysterectomy earlier this year for heavy bleeding. No heat or cold intolerance. Interval History: 10/04: Patient is seen sitting on the edge of her bed with family at bedside. She is wanting to discharge home. Neurology has seen the patient and reviewed MRI findings. Per neurology patient can discharge home. Explained recommendations for migraine headache treatment for future migraines. Patient verbalized understanding. Patient denies any complaints at this time. Time Spent with Patient Time attestation: Total time spent providing and/or coordinating discharge services:32 Exam Narrative: General: Well-developed, nontoxic-appearing female sitting up in bed. Weight: 89.6 kg. BMI: 30.0. HEENT: Normocephalic, atraumatic. PERRL, EOMI. Sclera anicteric. Oral mucosa moist. Oropharynx clear. Neck: Supple. Surgical scar on the underside of the chin and right side of the neck Respiratory: Lungs are clear to auscultation bilaterally. Cardiovascular: Regular rate and rhythm with S1-S2. Gastrointestinal: Abdomen is soft, nontender, and nondistended with positive bowel sounds. Skin: Warm and dry. No rash or lesions on limited exam. Extremities: No cyanosis, clubbing, or edema. Radial and pedal pulses intact. Neurological: Alert and oriented. Cranial nerves 2-12 are grossly intact. Speech is clear. No facial asymmetr
[2022-10-06 12:16] LABS: Growth Hormone ICMA 1.2 ng/mL (<=7.1)
[2022-10-09 07:26] LABS: FSH 30.2 mIU/mL (***); LH 7.3 mIU/mL (***); Prolactin 56.9 ng/mL (***)
== END 2022-10-04 11:50 | disposition home or self-care (01) ==
LOC: ANHED 14:22 → ANH3MEDSUR 16:10
PROVIDERS: Nurse Practitioner Acute Care; Admitting Provider Family Medicine; Emergency Provider Nurse Practitioner Family; PCP Physician Assistant; Visit Provider Hospitalist
DX: R51.9 Headache, unspecified (principal); E23.7 Disorder of pituitary gland, unspecified; R20.0 Anesthesia of skin; E03.9 Hypothyroidism, unspecified
CPT/HCPCS: 36415; 70450; 70553; 80053; 81003; 81025; 82533; 83001; 83002; 83003; 84146; 84439; 84443; 84480; 85025; 96361; 96374; 96375; 96376; 99285; A9270; A9577; G0378; J0780; J1100; J1885; J7030